=== PATIENT | female | born 1985 | race Caucasian/White ===

== ENCOUNTER 2018-07-22 13:40 | Emergency (ER) | payer OTHER ==
[2018-07-22 14:57] LABS: ABS Basophils 0.1 10^3/ul (0-0.2); ABS Eosinophils 0.5 10^3/ul (0-0.6); ABS Monocytes 0.5 10^3/ul (0-0.8); ABS Neutrophils 4.1 10^3/ul (1.5-7.7); ABS Nucleated RBC 0 10^3/ul; Eosinophil % 6.7 %; Hematocrit 38 % (33-41); Hemoglobin 12.8 g/dL (12.0-16.0); Lymphocyte % 27.8 %; Mean Corpuscular HGB Conc 34 g/dL (31-36); Mean Corpuscular Hemoglobin 30 pg (27-31); Mean Corpuscular Volume 90 fL (80-97); Mean Platelet Volume 8.3 fL (7.4-10.4); Nucleated Red Blood Cells % 0; Platelet Count 309 10^3/uL (150-450); Red Blood Count 4.23 10^6 /uL (3.70-4.87); Red Cell Distribution Width 13 % (10.5-15); White Blood Count 7.2 10^3/uL (3.5-10.8)
[2018-07-22 15:02] LABS: INR 0.87 (0.77-1.02)
[2018-07-22 15:11] LABS: Albumin/Globulin Ratio 1.5 (1-3); BUN/Creatinine Ratio 18.5 (8-20); Calcium 8.8 mg/dL (8.6-10.3); EGFR African American 128.6 (>60); EGFR Non-African American 106.3 (>60); Globulin 2.7 g/dL (2-4); Potassium 4.1 mmol/L (3.5-5.0); Total Bilirubin 0.4 mg/dL (0.2-1.0); Total Protein 6.7 g/dL (6.4-8.9)
[2018-07-22 15:57] VITALS: BP 128/86
--- NOTE | 2018-07-22 16:42 | ED ---
Lower Extremity - HPI Summary HPI Summary: Patient is a 33-year-old female who presents to the ED with a 2 day history of left leg pain, specifically to the calf. She was seen at [facility] who arranged an outpatient ultrasound. The results of the ultrasound were positive for a DVT. 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 She has never had a history of a PE or DVT. She denies taking any blood thinners. She is otherwise healthy and takes no medications other than her OCP. She denies a smoking history and last travel was 3 months ago. - History of Current Complaint Chief Complaint: EDExtremityLower Stated Complaint: POSITIVE DVT LEFT LEG FROM ULTRA SOUNG Time Seen by Provider: 07/22/18 13:44 Hx Obtained From: Patient Onset of Pain: Days Onset/Duration: Days Severity Initially: Moderate Severity Currently: Moderate Pain Intensity: 0 Pain Scale Used: 0-10 Numeric Timing: Constant Location: Is Discrete @ - Left lower extremity Character Of Pain: Aching Associated Signs And Symptoms: Positive: Swelling, Redness Aggravating Factor(s): Standing, Ambulation Alleviating Factor(s): Rest Able to Bear Weight: No - Risk Factors Gout Risk Factors: Negative DVT Risk Factors: Negative Septic Arthritis Risk Factor: Negative - Allergies/Home Medications Allergies/Adverse Reactions: Allergies Allergy/AdvReac Type Severity Reaction Status Date / Time No Known Allergies Allergy Verified 07/22/18 13:46 PMH/Surg Hx/FS Hx/Imm Hx Previously Healthy: Yes - Immunization History Hx Pertussis Vaccination: No Immunizations Up to Date: Yes Infectious Disease History: No Infectious Disease History: Denies: Traveled Outside the [place] in Last 30 Days - Social History Occupation: Unemployed, Student Lives: With Family Alcohol Use: None Hx Substance Use: No Substance Use Type: Reports: None Smoking Status (MU): Never Smoked Tobacco Review of Systems Constitutional: Negative Negative: Fever, Chills, Fatigue, Skin Diaphoresis Negative: Palpitations, Chest Pain Negative: Shortness Of Breath, Cough Genitourinary: Negative Positive: no symptoms reported, see HPI Positive: Arthralgia - left lower extremity, Edema. Negative: Myalgia Skin: Negative Neurological: Negative All Other Systems Reviewed And Are Negative: Yes Physical Exam Triage Information Reviewed: Yes Vital Signs On Initial Exam: Initial Vitals Temp Pulse Resp BP Pulse Ox 99.0 F 86 16 148/112 97 07/22/18 13:42 07/22/18 13:42 07/22/18 13:42 07/22/18 13:42 07/22/18 13:42 Vital Signs Reviewed: Yes Appearance: Positive: Well-Appearing, Well-Nourished Skin: Positive: Warm, Skin Color Reflects Adequate Perfusion, Other - Left lower extremity swelling without erythema Head/Face: Positive: Normal Head/Face Inspection Neck: Positive: Supple, No Lymphadenopathy Cardiovascular: Positive: RRR, Pulses are Symmetrical in both Upper and Lower Extremities Musculoskeletal: Positive: Normal, Strength/ROM Intact Neurological: Positive: Speech Normal Psychiatric: Positive: Normal, Affect/Mood Appropriate AVPU Assessment: Alert Diagnostics - Vital Signs Vital Signs Temp Pulse Resp BP Pulse Ox 07/22/18 15:53 99.2 F 70 18 128/86 99 07/22/18 13:42 99.0 F 86 16 148/112 97 - Laboratory Lab Results: Lab Results 07/22/18 07/22/18 07/22/18 Range/Units 14:43 14:43 14:43 WBC 7.2 (3.5-10.8) 10^3/uL RBC 4.23 (3.70-4.87) 10^6 /uL Hgb 12.8 (12.0-16.0) g/dL Hct 38 (33-41) % MCV 90 (80-97) fL MCH 30 (27-31) pg MCHC 34 (31-36) g/dL RDW 13 (10.5-15) % Plt Count 309 (150-450) 10^3/uL MPV 8.3 (7.4-10.4) fL Neut % (Auto) 57.3 % Lymph % (Auto) 27.8 % [place] % (Auto) 7.5 % Eos % (Auto) 6.7 % Baso % (Auto) 0.7 % Absolute Neuts (auto) 4.1 (1.5-7.7) 10^3/ul Absolute Lymphs (auto) 2.0 (1.0-4.8) 10^3/ul Absolute Monos (auto) 0.5 (0-0.8) 10^3/ul Absolute Eos (auto) 0.5 (0-0.6) 10^3/ul Absolute Basos (auto) 0.1 (0-0.2) 10^3/ul Absolute Nucleated RBC 0 10^3/ul Nucleated RBC % 0 INR (Anticoag Therapy) 0.87 (0.77-1.02) Sodium 139 (135-145) mmol/L Potassium 4.1 (3.5-5.0) mmol/L Chloride 108 (101-111) mmol/L Carbon Dioxide 27 (22-32) mmol/L Anion Gap 4 (2-11) mmol/L BUN 12 (6-24) mg/dL Creatinine 0.65 (0.51-0.95) mg/dL Est GFR ( Amer) 128.6 (>60) Est GFR (Non-Af Amer) 106.3 (>60) BUN/Creatinine Ratio 18.5 (8-20) Glucose 96 (70-100) mg/dL Calcium 8.8 (8.6-10.3) mg/dL Total Bilirubin 0.40 (0.2-1.0) mg/dL AST 12 L (13-39) U/L ALT 7 (7-52) U/L Alkaline Phosphatase 48 (34-104) U/L Total Protein 6.7 (6.4-8.9) g/dL Albumin 4.0 (3.2-5.2) g/dL Globulin 2.7 (2-4) g/dL Albumin/Globulin Ratio 1.5 (1-3) Result Diagrams: 07/22/18 14:43 07/22/18 14:43 Lab Statement: Any lab studies that have been ordered have been reviewed, and results considered in the medical decision making process. Lower Extremity Course/Dx - Course Course Of Treatment: Discussed with patient treatment options. DVT positive on ultrasound of the left lower extremity. Patient is given Xarelto twice a day 21 days prescription. She will follow-up within this amount of time to her primary for further evaluation and workup. I've given her information on Xarelto as well as DVTs. She will obtain compression hose and elevate as needed. - Diagnoses Differential Diagnosis/HQI/PQRI: Positive: Sprain, Strain Provider Diagnoses: DVT (deep venous thrombosis) Discharge - Sign-Out/Discharge Documenting (check all that apply): Patient Departure Patient Received Moderate/Deep Sedation with Procedure: No - Discharge Plan Condition: Stable Disposition: HOME Prescriptions: Rivaroxaban TAB(*) [Xarelto 15 mg(*)] 15 mg PO BID #41 tab MDD 2 Patient Education Materials: Rivaroxaban (By mouth), Deep Vein Thrombosis (ED) Referrals: Montse Layne [facility] [Primary Care Provider] - Additional Instructions: Please follow up with PCP within 3 weeks for a further workup/prescription to assess resolution - Billing Disposition and Condition Condition: STABLE Disposition: Home
== END 2018-07-22 15:53 | disposition home or self-care (01) ==
LOC: ED 13:40
DX: I82.4Z2 Acute embolism and thrombosis of unspecified deep veins of left distal lower extremity (principal)
CPT/HCPCS: 36415; 80053; 85025; 85610; 99282